=== PATIENT | male | born 1955 | race Caucasian/White ===

== ENCOUNTER 2021-01-27 22:37 | Inpatient (IN) | payer MEDICARE, OTHER ==
[~2021-01-27] VITALS: Ht 190.5 cm; Wt 82.6 kg
--- NOTE | 2021-01-27 23:00 | NUR ---
Pt. resting in bed. 1:[address] Denies SI at this time.
--- NOTE | 2021-01-27 23:09 | NUR ---
Called Matthew Avina from [facility]. ETA is 1hr.
--- NOTE | 2021-01-27 23:09 | NUR ---
Pt. is medically cleared. Art called to evaluate pt for hold, his ETA is 1 hr
[2021-01-27 23:12] LABS: *BILIRUBIN,URIN NEGATIVE (NEGATIVE); *BLOOD, URINE NEGATIVE (NEGATIVE); *CLARITY,URINE CLEAR (CLEAR); *COLOR,URINE YELLOW (YELLOW); *KETONES,URINE TRACE (NEGATIVE); LEUKOCYTE ESTERASE ,URINE NEGATIVE (NEGATIVE); NITRITE, URINE NEGATIVE (NEGATIVE); UGLUCOSE NEGATIVE (NEGATIVE)
[2021-01-27 23:17] LABS: BACTERIA,URINE NONE SEEN /HPF (NONE SEEN); RBC,URINE 0-3 /HPF (0-3); SQUAMOUS EPITHELIAL CELL,UR FEW /HPF (NONE SEEN); WBC,URINE 0-3 /HPF (0-3)
--- NOTE | 2021-01-28 | NUR ---
Pt. requested something to eat, was given a sandwich and pudding which the pt. ate.
--- NOTE | 2021-01-28 00:30 | NUR ---
Art at bedside to evaluate pt.
--- NOTE | 2021-01-28 01:17 | NUR ---
Pt. has been placed on a 5150 hold and will be admitted to the mental health unit at [facility].
--- NOTE | 2021-01-28 02:00 | NUR ---
Report given to STACIA Gallagher.
[2021-01-28 02:45] VITALS: BP 110/72
[2021-01-28] MEDS ORDERED: MAG HYDROX/AL HYDROX/SIMETH 30 ML LIQUID UDC PO PRN (02:45)
[2021-01-28] MEDS ORDERED: MAGNESIUM HYDROXIDE 30 ML LIQUID UDC PO PRN (02:45)
[2021-01-28] MEDS ORDERED: BLOOD SUGAR DIAGNOSTIC 1 EACH STRIP VI ONE (02:45)
--- NOTE | 2021-01-28 03:00 | NUR ---
GPS ADMISSION NOTE. Patient is a 65 year male brought in to the ER from [facility] via ambulance. Patient is on a 5150 for DTS. Per hold ,this patient verbalized wanting to kill himself by hanging. Patient is Homeless and has no support system. Upon face to face evaluation , the patient was calm and cooperative. Patient admitted to being depressed, having an alcohol and drug problem as well. When asked what brought him to the hospital he stated " I am homeless and it is getting harder and harder to live on the streets. I have no family or friends. I do not take any medications ". This patient did make a verbal contract for safety while in the hospital. The VS are stable. Orientation to the unit and rules, Patient rights handbook and Advisement were provided as well as a snack. Patient was anxious and medication was given for that. Dr. Dahl was notified of the admission and orders were received. Continuing to monitor this patient closely and safety stratiges are in place.
[2021-01-28] MEDS: LORAZEPAM 1 MG TABLET PO PRN ×2 (03:45→20:17)
[2021-01-28 07:30] VITALS: BP 115/71
[2021-01-28] MEDS: NICOTINE 21 MG/24HR PATCH TD SCH ×2 (13:27→20:29)
[2021-01-28] MEDS: SERTRALINE HCL 50 MG TABLET PO SCH ×2 (13:27→13:30)
--- NOTE | 2021-01-28 13:28 | NUR ---
Firearms Report: Almond Pan Finisher completed and submitted a DOJ firearms report for 5150 danger to self certifications. A copy of report has been placed in patient chart.
--- NOTE | 2021-01-28 15:16 | NUR ---
Gps/Civil Designer- [place] a loud banging iin the patient's room , per patient he was up set about something , but unable to elaborate . Offered to take ativan 1 mpg po., refused per patient, " you're not going to dope me up because i am upset about something, good bye ". Instructed patient to not hurt anybody , and encouraged to contract for safety, no response from patient , told staff "leave" Continue to monitor behavior, remains in his room in bed.
--- NOTE | 2021-01-28 15:16 | NUR ---
SW Initial Discharge Plan: Patient is currently homeless and would like SNF placement. Patient has no family or supportive contacts. SW will seek SNF placement for the patient. SW will continue to work with patient and MD to ensure a safe and proper discharge plan.
--- NOTE | 2021-01-28 15:36 | NUR ---
SW Substance Abuse Intervention: Patient was provided with a brief substance abuse intervention and referred to [facility] [address], [place] [address] ([phone]); [facility] [address], [address], [place] [address] ([phone]); [facility] ([phone]); [facility] ([phone]); [facility] ([phone]); and National Suicide Prevention Lifeline ([phone]).
[2021-01-28 17:01] VITALS: BP 119/71
[2021-01-28] MEDS ORDERED: SERTRALINE HCL 50 MG TABLET PO ONE (20:00)
[2021-01-28] MEDS: ACETAMINOPHEN 325 MG TABLET PO PRN (20:17)
[2021-01-28 20:20] VITALS: BP 147/81
[2021-01-28] MEDS: TEMAZEPAM 7.5 MG CAPSULE PO PRN (23:07)
--- NOTE | 2021-01-29 06:25 | NUR ---
Received the patient in the day room last night. Awake, calm and cooperative. This racebook writer was able to engage in meaningful conversation with the patient. The patient continues to be depressed but said felt " A little better than before he came here". The patient asked for the nicotine patch . This racebook writer applied the patch because the patient had not received it in the am . The patient also agreed to take the Zoloft and wanted a sleeping pill as well. Patient was compliant and cooperative. This patient was being monitored for SI and frequent rounding was done to ensure safety. Sleep hours were 6.00.
[2021-01-29 07:24] LABS: BILIRUBIN,TOTAL 0.8 mg/dL (0.2-1.0); CREATININE 0.8 mg/dL (0.6-1.3); POTASSIUM 4.4 mmol/L (3.5-5.1); TOTAL PROTEIN, SERUM 7.8 g/dL (6.4-8.2)
[2021-01-29 07:45] VITALS: BP 113/81
[2021-01-29] MEDS: THIAMINE HCL 100 MG TABLET PO SCH (08:43)
[2021-01-29] MEDS: SERTRALINE HCL 50 MG TABLET PO SCH (08:44)
[2021-01-29 16:06] VITALS: BP 131/82
[2021-01-29 20:00] VITALS: BP 120/79
--- NOTE | 2021-01-29 20:00 | NUR ---
RECEIVED PATIENT IN THE HALLWAY. HE WAS NOTED A/O X 2. NOTED EASILY IRRITABLE BUT REDIRECTABLE. HE STATED, "I NEED MY MEDICATIONS" PATIENT WAS ADVISED NO ROUTINE MEDICATION WERE SCHEDULE AT BED TIME. HE CONTINUE STATING THAT HE HAS MEDICATION. THIS ENERGY RISK MANAGEMENT ANALYST CHECKED THE MAR AGAIN AND PATIENT WAS TOLD ONLY PRN TYLENOL AND TEMAZEPAM WERE AVAILABLE. PATIENT WALKED AWAY. PATIENT'S V/S ARE STABLE. HE WAS GIVEN PO FLUIDS AND SNACKS, SAFETY AND FALL PRECAUTION IN PLACE. WILL CONTINUE TO MONITOR.
--- NOTE | 2021-01-29 22:00 | NUR ---
PATIENT APPROACHED THE NURSING STATION AT APPROX 2130, HE STATED IN A A LOUD TONE, WHERE IS MY MEDICATION. I NEED MY MEDICATION, YOU WERE SUPPOSED TO BRING MY MEDICATION BUT YOU DIDN'T, YOU FORGOT I AM GOING TO REPORT YOU TOMORROW". PT WAS INFORMED THAT SHE ONLY HAVE TEMAZEPAM FOR SLEEP AND TYLENOL AND A COULD GIVE TO HIM IF HE NEEDED THEM. PATIENT CONTINUE YELLING, "YOU FORGOT MY MEDICATION, GET OUT, I DON'T WANT TO SEE YOU". PATIENT WENT INTO HIS BED AND COVERS HIMSELF WITH A BLUE BLANKET HE CONTINUE COMPLAINT WITH HIS ROOMMATE ABOUT THE FOOD, AND THE MEDICATIONS. AFTER A FEW MINS PATIENT WAS ABLE TO STOP TALKING AN APPEARS TO BE ASLEEP. SAFETY AND FALL PRECAUTION IN PLACE. WILL CONTINUE TO MONITOR,
[2021-01-30 08:18] VITALS: BP 115/74
[2021-01-30] MEDS: NICOTINE 21 MG/24HR PATCH TD SCH (08:29)
[2021-01-30] MEDS: THIAMINE HCL 100 MG TABLET PO SCH (08:29)
[2021-01-30] MEDS: SERTRALINE HCL 50 MG TABLET PO SCH ×2 (08:30→13:11)
--- NOTE | 2021-01-30 09:30 | NUR ---
Gps/Property Insurance Inspector- Stayed in the activity room during breakfast, had been pleasant and compliant with his routine am medications. Attended group therapy , apologized about his behavior toward night Nurse , he gets impatient as he called it.
--- NOTE | 2021-01-30 15:49 | NUR ---
Gps/Traffic Division Commanding Officer- 14 day hold was faxed to [address].(01/30/21)
[2021-01-30 16:47] VITALS: BP 104/68
[2021-01-30 20:04] VITALS: BP 112/64
[2021-01-31] MEDS: NICOTINE 21 MG/24HR PATCH TD SCH (08:44)
[2021-01-31] MEDS: THIAMINE HCL 100 MG TABLET PO SCH (08:44)
[2021-01-31] MEDS: SERTRALINE HCL 50 MG TABLET PO SCH ×2 (08:44→13:19)
[2021-01-31 15:33] VITALS: BP 110/66
[2021-01-31 20:11] VITALS: BP 112/74
[2021-02-01 07:30] VITALS: BP 98/74
[2021-02-01] MEDS: SERTRALINE HCL 50 MG TABLET PO SCH (08:19)
[2021-02-01] MEDS: THIAMINE HCL 100 MG TABLET PO SCH (08:19)
[2021-02-01] MEDS: NICOTINE 21 MG/24HR PATCH TD SCH (08:19)
[2021-02-01] MEDS: LORAZEPAM 1 MG TABLET PO PRN (09:28)
--- NOTE | 2021-02-01 09:28 | NUR ---
GPS: Nursing Notes: Severe Agitation: Patient is verbally abusive toward his roommate, loud and pressured speech, overly disruptive by constantly shouting, using profanities, threatening to hurt his roommate, "I AM GOING TO FUCKEN KILL YOU.. MOTHER MIAH... FUCK YOU...", violent outburst without provocation, believes that his roommate is coming for him, redirected and setting limits, but continue to shout profanities, paranoid behavior, Ativan 1mg PO PRN given to patient, continue to monitor for safety, removed roommate to another room, continue with treatment plan.
[2021-02-01] MEDS ORDERED: OLANZAPINE 10 MG VIAL IM ONE (09:45)
--- NOTE | 2021-02-01 09:47 | NUR ---
GPS: Nursing Notes: Violent Outburst Without Provocation: Chemical Restraint: Patient became violent toward roommate when roommate was talking on the portable phone, believes that his roommate is lying about him, "MOTHER FUCKER... YOU ARE LYING.. FUCK YOU..", then he went toward the roommate, clenching his fists shouting "I AM GOING TO KILL... WHO YOU CALLING A BITCH... MOTHER FUCKER.... I AM GOING TO MAKE YOU MY BITCH..", redirected and setting limits, but continue to be violent, started to attack the staff, became verbal abusive toward staff, threatening the staff, clenching his fists toward staff, violating the staff personal space, trying to spit at staff, unable to follow directions, paranoid behavior, elise esquivel called at 09:40 hours by charge nurse, Dr. Dahl called and ordered: Zyprexa 10mg IM STAT for violent outburst and threatening to kill roommate and staff, R=20, constantly shouting threats toward staff and security professionals, believes that we are hurting now, continue to monitor for safety, continue with treatment plan.
--- NOTE | 2021-02-01 10:17 | NUR ---
GPS: Nursing Notes: Reassessment of Chemical Restraint: Patient is responding to his name, laying down on his bed, patient is calmed, R=18, medication IM was effective, patient is not threatening to kill anybody, continue to monitor for safety, continue with treatment plan.
[2021-02-01 15:57] VITALS: BP 129/72
[2021-02-01] MEDS: GABAPENTIN 300 MG CAPSULE PO SCH (17:00)
[2021-02-01] MEDS: OLANZAPINE 5 MG TABLET PO SCH (17:00)
[2021-02-01 20:20] VITALS: BP 99/63
[2021-02-02 07:30] VITALS: BP 98/64
--- NOTE | 2021-02-02 07:30 | NUR ---
Received report from STACIA Gallagher. All questions, comments, and concerns were addressed. Received patient resting quietly in his assigned bed. Bed is in low and locked position.
[2021-02-02] MEDS: THIAMINE HCL 100 MG TABLET PO SCH (08:43)
[2021-02-02] MEDS: GABAPENTIN 300 MG CAPSULE PO SCH ×3 (08:43→16:29)
[2021-02-02] MEDS: OLANZAPINE 5 MG TABLET PO SCH ×3 (08:43→16:29)
[2021-02-02] MEDS: NICOTINE 21 MG/24HR PATCH TD SCH (08:47)
[2021-02-02 08:54] LABS: CREATININE 0.8 mg/dL (0.6-1.3); POTASSIUM 4.2 mmol/L (3.5-5.1); TOTAL PROTEIN, SERUM 7.3 g/dL (6.4-8.2)
--- NOTE | 2021-02-02 11:56 | NUR ---
Court Hearing: Patient's [address] court hearing was today and it was upheld for GD.
--- NOTE | 2021-02-02 13:20 | NUR ---
[facility] Individual Therapy: iron worker foreman met with patient for brief counseling and assessed for patient's presenting problem depressed mood. Patient did not want to conduct therapy at this time.
[2021-02-02 16:00] VITALS: BP 98/65
--- NOTE | 2021-02-02 17:25 | NUR ---
Patient is alert and oriented. Patient is guarded, withdrawn, and isolative to his room. Patient denies SI/HI, denies AH/VH. He is compliant with medication, no adverse reaction noted. Patient is cooperative and compliant with staff, able to communicate his needs appropriately. Patient encouraged to participate in unit groups and therapeutic milieu. Patient is able to ambulate independently, able to perform self care and ADL's independently.
[2021-02-02 20:22] VITALS: BP 100/61
--- NOTE | 2021-02-03 05:16 | NUR ---
Patient is cooperative with care, semi fair insight and semi fair judgement. Patient interacts with staffs. Mostly isolative, stays in his room, up for needs only. Patient will remain in a psych facility for further evaluation and treatment.
[2021-02-03 07:30] VITALS: BP 110/72
[2021-02-03] MEDS: NICOTINE 21 MG/24HR PATCH TD SCH (09:00)
[2021-02-03] MEDS: GABAPENTIN 300 MG CAPSULE PO SCH ×3 (09:57→17:00)
[2021-02-03] MEDS: OLANZAPINE 5 MG TABLET PO SCH ×3 (09:57→17:00)
[2021-02-03] MEDS: THIAMINE HCL 100 MG TABLET PO SCH (09:57)
[2021-02-03 16:03] VITALS: BP 130/76
[2021-02-03 20:00] VITALS: BP 103/68
--- NOTE | 2021-02-03 20:30 | NUR ---
RECEIVED PATIENT IN HIS ROOM IN BED. HE IS NOTED AWAKE A/O X 3 HE IS ABLE TO VERBALIZED HIS FEELINGS. HE IS NOTED WITH LOW MOOD, AFFECT IS LABILE. FAIR INSIGHT AND JUDGMENT IS NOTED FOR HIS ADMISSION TO MHU. V/S STABLE. PO FLUIDS AND SNACKS WERE GIVEN. HE IS REASSURED FOR HIS SAFETY. SAFETY AND FALL PRECAUTION IN PLACE. WILL CONTINUE TO MONITOR.
[2021-02-04 07:30] VITALS: BP 104/61
[2021-02-04] MEDS: GABAPENTIN 300 MG CAPSULE PO SCH ×3 (08:53→17:17)
[2021-02-04] MEDS: OLANZAPINE 5 MG TABLET PO SCH ×3 (08:53→17:17)
[2021-02-04] MEDS: THIAMINE HCL 100 MG TABLET PO SCH (08:53)
[2021-02-04] MEDS: NICOTINE 21 MG/24HR PATCH TD SCH (08:55)
--- NOTE | 2021-02-04 09:59 | NUR ---
SNF Referral: This SW sent clinicals to Sean admin from [facility] for placement.
--- NOTE | 2021-02-04 14:11 | NUR ---
Patient endorse to STACIA Benítez for continuity of care.
[2021-02-04 17:39] VITALS: BP 110/72
[2021-02-04 20:04] VITALS: BP 98/71
[2021-02-05 07:53] VITALS: BP 121/76
[2021-02-05] MEDS: THIAMINE HCL 100 MG TABLET PO SCH (08:21)
[2021-02-05] MEDS: GABAPENTIN 300 MG CAPSULE PO SCH ×3 (08:21→16:01)
[2021-02-05] MEDS: OLANZAPINE 5 MG TABLET PO SCH ×3 (08:21→16:01)
[2021-02-05] MEDS: NICOTINE 21 MG/24HR PATCH TD SCH (08:22)
[2021-02-05 17:03] VITALS: BP 106/78
[2021-02-05 20:09] VITALS: BP 116/78
[2021-02-05] MEDS: LORAZEPAM 1 MG TABLET PO PRN (20:38)
[2021-02-05] MEDS: ACETAMINOPHEN 325 MG TABLET PO PRN (20:38)
[2021-02-06] MEDS: TEMAZEPAM 7.5 MG CAPSULE PO PRN (02:35)
[2021-02-06 08:19] VITALS: BP 108/62
[2021-02-06] MEDS: NICOTINE 21 MG/24HR PATCH TD SCH (08:37)
[2021-02-06] MEDS: GABAPENTIN 300 MG CAPSULE PO SCH ×3 (08:38→16:18)
[2021-02-06] MEDS: OLANZAPINE 5 MG TABLET PO SCH ×3 (08:38→16:18)
[2021-02-06] MEDS: THIAMINE HCL 100 MG TABLET PO SCH (08:38)
[2021-02-06 16:22] VITALS: BP 104/66
[2021-02-06 20:01] VITALS: BP 128/80
[2021-02-06] MEDS: LORAZEPAM 1 MG TABLET PO PRN (20:36)
[2021-02-06] MEDS: ACETAMINOPHEN 325 MG TABLET PO PRN (20:36)
[2021-02-07] MEDS: THIAMINE HCL 100 MG TABLET PO SCH (08:20)
[2021-02-07] MEDS: OLANZAPINE 5 MG TABLET PO SCH ×3 (08:20→16:42)
[2021-02-07] MEDS: GABAPENTIN 300 MG CAPSULE PO SCH ×3 (08:21→16:42)
[2021-02-07] MEDS: NICOTINE 21 MG/24HR PATCH TD SCH (08:21)
--- NOTE | 2021-02-07 08:22 | NUR ---
SNF Contact: This SW received a call from Sean Marroquin from [facility] who stated pt is accepted.
[2021-02-07 20:12] VITALS: BP 127/73
[2021-02-08] MEDS: THIAMINE HCL 100 MG TABLET PO SCH (08:17)
[2021-02-08] MEDS: OLANZAPINE 5 MG TABLET PO SCH ×2 (08:17→20:09)
[2021-02-08] MEDS: GABAPENTIN 300 MG CAPSULE PO SCH ×3 (08:17→16:13)
[2021-02-08] MEDS: NICOTINE 21 MG/24HR PATCH TD SCH (08:18)
[2021-02-08 15:33] VITALS: BP 91/53
[2021-02-08] MEDS: LORAZEPAM 1 MG TABLET PO PRN (16:13)
[2021-02-08 20:17] VITALS: BP 115/76
--- NOTE | 2021-02-08 22:52 | NUR ---
THE PATIENT RECEIVED IN DINNING ROOM AWAKE WATCHING T.V.THE PATIENT IS ALERT/ORIENTED X 3. THE PATIENT DENIES PAIN AT THIS TIME. THE PATIENT IS COMPLAINT WITH MEDICATION. SAFE ENVIRONMENT PROVIDED, FREQUENT ROUNDING, AND CLUTTER FREE ENVIRONMENT. BED IN LOWEST POSITION, BED LOCKED, AND BED ALARM ON WHILE IN BED. THE PATIENT DENIES SI.
[2021-02-09 07:30] VITALS: BP 94/48
[2021-02-09] MEDS: THIAMINE HCL 100 MG TABLET PO SCH (08:30)
[2021-02-09] MEDS: GABAPENTIN 300 MG CAPSULE PO SCH ×3 (08:30→17:04)
[2021-02-09] MEDS: NICOTINE 21 MG/24HR PATCH TD SCH (08:33)
[2021-02-09] MEDS ORDERED: OLANZAPINE 5 MG TABLET PO SCH ×2 (09:00→13:00)
[2021-02-09] MEDS: OLANZAPINE 2.5 MG TABLET PO SCH (12:04)
[2021-02-09 16:20] VITALS: BP 98/61
--- NOTE | 2021-02-09 17:49 | NUR ---
patient is alert and oriented. he is guarded, withdrawn, and isolative to his room, but is cooperative. patient is adherent with medication, no adverse reaction noted. patient denies SI/HI, denies AH/VH. patient is able to ambulate independently, able to perform self care and ADL's. patient able to communicate needs to staff appropriately. encouraged to participate in the unit groups and therapeutic milieu.
[2021-02-09] MEDS: OLANZAPINE 5 MG TABLET PO SCH (20:31)
[2021-02-09 21:30] VITALS: BP 109/71
--- NOTE | 2021-02-10 06:20 | NUR ---
Patient slept for 7 hours and 30 mins. Med compliant, pleasant upon approach, interacts with staff, semi fair insight and semi fair judgment. Patient will remain in a psych facility for further evaluation and treatment.
[2021-02-10 07:30] VITALS: BP 123/67
--- NOTE | 2021-02-10 07:54 | NUR ---
SW Discharge Note: Patient will be discharged to [facility] facility to [facility] [address] [place] [address]; ([phone]) via Ambulance transportation at 1pm. Regional Account Executive spoke with Sean, Filter Washer at [facility] ([phone]) who stated patient will be accepted at facility today. Patient is alert and oriented x3 and is not able to plan for self-care at this time but is willing to accept care provided for his at the facility. Patient denies any suicidal or homicidal ideations. Patient is aware and agreeable with discharge plans. Patients does not have any family at this time. Patient will continue to follow-up with (psychiatrist) Dr. Dahl and (bath tester) Dr. Argueta. Patient was provided with a brief substance abuse intervention and referred to [facility] [address] [place] [address] ([phone]); [facility] [address], [address], [place] [address] ([phone]); [facility] ([phone]); [facility] ([phone]); [facility] ([phone]); and National Suicide Prevention Lifeline (633-573-1061). Patient signed the homeless waiver upon discharge and a copy was placed in the chart. Homeless resources were provided and include 211 information line for shelters and homeless resources. A copy of all resources given to patient was also placed in the chart. Patient presented with euthymic mood and congruent affect.
[2021-02-10] MEDS: GABAPENTIN 300 MG CAPSULE PO SCH ×2 (09:55→13:02)
[2021-02-10] MEDS: THIAMINE HCL 100 MG TABLET PO SCH (09:55)
[2021-02-10] MEDS: NICOTINE 21 MG/24HR PATCH TD SCH (09:56)
[2021-02-10] MEDS: OLANZAPINE 2.5 MG TABLET PO SCH ×2 (10:01→13:03)
--- NOTE | 2021-02-10 14:29 | NUR ---
[facility] HERE TO PICK HIM UP AND TRANSPORT TO [facility]. BELONGINGS/VALUABLES RECONCILED. REPORT GIVEN TO RECEIVING FACILITY, [facility]. VSS NO C/O PAIN DISCOMFORT NOTED
== END 2021-02-10 14:30 | DRG 885 ==
LOC: ER 22:39 → GPS 01-28 02:07
PROVIDERS: ADMIT Psychiatry & Neurology Psychosomatic Medicine; ATTEND Nurse Practitioner Acute Care
DX: F33.2 Major depressive disorder, recurrent severe without psychotic features (principal); B18.2 Chronic viral hepatitis C; R45.851 Suicidal ideations; Z59.0 Homelessness; F41.9 Anxiety disorder, unspecified; F10.10 Alcohol abuse, uncomplicated; F15.10 Other stimulant abuse, uncomplicated; F19.10 Other psychoactive substance abuse, uncomplicated; F17.210 Nicotine dependence, cigarettes, uncomplicated
CPT/HCPCS: 36415; 97161; J2358

== ENCOUNTER 2022-07-25 16:38 | Inpatient (IN) | payer MEDICARE, OTHER ==
[~2022-07-25] VITALS: Ht 193 cm; Wt 81.6 kg
[2022-07-25] MEDS ORDERED: diphenhydrAMINE 50 MG/1 ML VIAL ONE (16:57)
[2022-07-25] MEDS ORDERED: LORAZEPAM 2 MG/1 ML VIAL ONE (16:57)
[2022-07-25] MEDS ORDERED: HALOPERIDOL LACTATE 5 MG/1 ML VIAL ONE (16:57)
[2022-07-25] MEDS ORDERED: HALOPERIDOL LACTATE 5 MG/1 ML VIAL IM ONE (17:00)
[2022-07-25] MEDS ORDERED: diphenhydrAMINE 50 MG/1 ML VIAL IM ONE (17:00)
[2022-07-25] MEDS ORDERED: LORAZEPAM 2 MG/1 ML VIAL IM ONE (17:15)
--- NOTE | 2022-07-25 17:19 | NUR ---
Pt arrived [facility] with c/o nose pain. Pt was verbally abusive to medical staff stating "fuck you, motherfucker" and was raising his middle finger to securities and ERMD. Pt was also physically threatening the staff.
--- NOTE | 2022-07-25 17:30 | NUR ---
Medical staff have tried to de-escalate the situation by communication and validation, but pt was insistent on leaving the premises while intoxicated and physically and verbally aggressive.
[2022-07-25] MEDS ORDERED: ESCI-9 PO (17:34)
[2022-07-25] MEDS ORDERED: LIDO30AD10 TD (17:34)
[2022-07-25] MEDS ORDERED: PANT40TA49 PO (17:34)
--- NOTE | 2022-07-25 17:34 | NUR ---
Pt is placed on hard restraint per ERMD
[2022-07-25] MEDS ORDERED: IBUP-1957 PO (17:36)
[2022-07-25] MEDS ORDERED: LOSA50TA39 PO (17:36)
[2022-07-25] MEDS ORDERED: DOCU100C36 PO (17:36)
[2022-07-25] MEDS ORDERED: ACET1TAB23 PO (17:38)
[2022-07-25] MEDS ORDERED: ACET-73 PO (17:38)
[2022-07-25 17:48] LABS: HEMATOCRIT 44.7 % (36.7-47.1); MEAN CORPUSCULAR HEMOGLOBIN 35.2 uug (23.8-33.4); MEAN CORPUSCULAR VOLUME 102.1 fL (73.0-96.2); PLATELET COUNT (AUTO) 120 K/uL (152-348)
[2022-07-25 17:59] LABS: CARBON DIOXIDE 24 mmol/L (21-32); CHLORIDE 99 mmol/L (98-107); CREATININE 0.7 mg/dL (0.6-1.3); GLUCOSE 95 mg/dL (74-106); POTASSIUM 3.8 mmol/L (3.5-5.1); UREA NITROGEN, BLOOD 13 mg/dL (7-18)
[2022-07-25 18:05] LABS: ALANINE AMINOTRANSFERASE 87 U/L (16-63); ALKALINE PHOSPHATASE 100 U/L (50-136); ASPARTATE AMINOTRANSFERASE 126 U/L (15-37); BILIRUBIN,DIRECT 0.4 mg/dL (0.0-0.2); BILIRUBIN,TOTAL 0.8 mg/dL (0.2-1.0); TOTAL PROTEIN, SERUM 8.2 g/dL (6.4-8.2)
[2022-07-25 18:10] LABS: ACETAMINOPHEN < 2.0 ug/mL (10-30)
[2022-07-25 18:15] LABS: ETHANOL 222 MG/DL (0-0)
[2022-07-25] MEDS ORDERED: MAGNESIUM SULFATE/D5W 100 ML IV SCH (18:15)
[2022-07-25] MEDS ORDERED: IV NORMAL SALINE 1000 ML BAG IV ONE (18:15)
[2022-07-25] MEDS ORDERED: MAGNESIUM SULFATE/D5W 100 ML ONE (18:51)
[2022-07-25] MEDS ORDERED: HALOPERIDOL LACTATE 5 MG/1 ML VIAL IV ONE (19:00)
[2022-07-25] MEDS ORDERED: diphenhydrAMINE 50 MG/1 ML VIAL IV ONE (19:00)
[2022-07-25] MEDS ORDERED: LORAZEPAM 2 MG/1 ML VIAL IV ONE (19:15)
[2022-07-25 19:34] LABS: *BILIRUBIN,URIN NEGATIVE (NEGATIVE); *BLOOD, URINE NEGATIVE (NEGATIVE); *CLARITY,URINE CLEAR (CLEAR); *COLOR,URINE YELLOW (YELLOW); *KETONES,URINE NEGATIVE (NEGATIVE); LEUKOCYTE ESTERASE ,URINE NEGATIVE (NEGATIVE); NITRITE, URINE NEGATIVE (NEGATIVE); PH,URINE 5.5 (5.0-8.0); UGLUCOSE NEGATIVE (NEGATIVE)
[2022-07-25 19:45] LABS: *AMPHETAMINE, URINE NEGATIVE (NEGATIVE); *CANNABINOID, URINE NEGATIVE (NEGATIVE); *COCCAINE, URINE NEGATIVE (NEGATIVE); *OPIATE, URINE NEGATIVE (NEGATIVE); *PHENCYCLIDINE SCREEN,URINE NEGATIVE (NEGATIVE)
--- NOTE | 2022-07-25 20:11 | NUR ---
Patient lying in bed, yelling out. No s/s of any distress noted at this time. patient is in 4 point restraints. Spoke with patient agreed to stop yelling, Informed of plan of care and made aware that his restraint will be removed 1 at a time depending on his behavior. Patient aware I will reassess in 15 minutes. Side rails up will continue to monitor.
[2022-07-25] MEDS ORDERED: CHLORDIAZEPOXIDE HCL 25 MG CAPSULE PO PRN ×2 (20:30)
[2022-07-25] MEDS ORDERED: LORAZEPAM 2 MG/1 ML VIAL IV PRN (20:30)
--- NOTE | 2022-07-25 20:44 | NUR ---
Patient is calm and cooperative at this time Left hand released.
[2022-07-25] MEDS ORDERED: DOCUSATE SODIUM 100 MG CAPSULE PO PRN (20:45)
[2022-07-25] MEDS ORDERED: ACETAMINOPHEN/CODEINE 300-30 MG TABLET PO PRN (20:45)
[2022-07-25] MEDS ORDERED: HYDROCODONE/APAP 5-325MG TABLET PO PRN (20:45)
[2022-07-25] MEDS ORDERED: TEMAZEPAM 15 MG CAPSULE PO PRN (21:00)
[2022-07-25] MEDS ORDERED: ONDANSETRON 4 MG/2 ML VIAL IV PRN (21:00)
[2022-07-25] MEDS ORDERED: ACETAMINOPHEN 325 MG TABLET PO PRN (21:00)
[2022-07-25] MEDS ORDERED: MAGNESIUM HYDROXIDE 30 ML LIQUID UDC PO PRN (21:00)
--- NOTE | 2022-07-25 21:09 | NUR ---
Patient continues to be calm, right hand released at this time.
--- NOTE | 2022-07-25 23:38 | NUR ---
Late entry: 2139 left leg released, patient remains calm, no voiced c/o pain or discomfort.
--- NOTE | 2022-07-26 00:43 | NUR ---
Late entry: 2149 right leg released, patient resting no c/o aware will be admitted to the hospital.
--- NOTE | 2022-07-26 00:44 | NUR ---
Report given to accepting nurse Donna, patient remains stable for transpor to unit.
--- NOTE | 2022-07-26 01:06 | NUR ---
Late entry: Md was made aware of patient not recieving medications. Patient has been calm without c/o.
[2022-07-26] MEDS ORDERED: MVI ADULT IV SCH (01:45)
[2022-07-26] MEDS ORDERED: 1/2 NS IV SCH (01:45)
[2022-07-26] MEDS ORDERED: D5 IV SCH (01:45)
--- NOTE | 2022-07-26 02:00 | NUR ---
Patient arrived on unit from ER for admission to room 215. A/A/O X 3. Patient very reluctant to have initial body assessment done. He is wrapped up in multiple blankets. While getting him situated in bed, he is noted with abrasion on top of his nose and both legs and bruise on left arm. When try to put on tele monitor, patient screams loudly stating that placement of the electrode pads hurts him, meanwhile, all pads were already attached to buttons prior to placement on designated areas into patient's skin. I explain to patient that it only takes a quick minute to get this done. Patient allows me to finish applying the pads for tele monitoring but refuses to answer any other questions to complete his admission assessment.
[2022-07-26] MEDS: ESCITALOPRAM OXALATE 10 MG TABLET PO SCH ×2 (08:53→09:04)
[2022-07-26] MEDS: PANTOPRAZOLE SODIUM 40 MG TABLET.DR PO SCH (09:03)
[2022-07-26] MEDS: LOSARTAN POTASSIUM 50 MG TABLET PO SCH (09:03)
[2022-07-26] MEDS: LIDOCAINE 5% PATCH TD SCH (09:04)
[2022-07-26] MEDS ORDERED: IV D5 1/2 NS 1000 ML 1,000 ML IV PRN (10:15)
[2022-07-26 10:51] VITALS: BP 100/61
[2022-07-26] MEDS: FOLIC ACID 1 MG TABLET PO SCH ×2 (11:58→21:02)
[2022-07-26] MEDS: MULTIVITAMINS,THERAPEUTIC TABLET PO SCH (11:58)
[2022-07-26] MEDS: CYANOCOBALAMIN 1,000 MCG TABLET PO SCH ×2 (12:00→21:02)
[2022-07-26] MEDS: THIAMINE HCL 100 MG TABLET PO SCH ×2 (12:00→21:02)
[2022-07-26 16:23] LABS: HEMATOCRIT 39.6 % (36.7-47.1); MEAN CORPUSCULAR HEMOGLOBIN 34.8 uug (23.8-33.4); MEAN CORPUSCULAR VOLUME 101.4 fL (73.0-96.2); PLATELET COUNT (AUTO) 102 K/uL (152-348)
[2022-07-26 16:31] LABS: CREATININE 0.8 mg/dL (0.6-1.3); POTASSIUM 4.1 mmol/L (3.5-5.1)
[2022-07-26 16:35] LABS: MAGNESIUM 1.6 mg/dL (1.8-2.4); PHOSPHOROUS 3.1 mg/dL (2.5-4.9)
[2022-07-26 20:00] VITALS: BP 106/72
[2022-07-27] VITALS: BP 104/62
--- NOTE | 2022-07-27 01:08 | NUR ---
Patient alert and oriented x4. No acute distress or complaints noted. Saline lock intact in left upper arm. Voiding clear param urine in urinal. Denies any discomfort or pain.
[2022-07-27 04:49] VITALS: BP 119/73
[2022-07-27] MEDS: PANTOPRAZOLE SODIUM 40 MG TABLET.DR PO SCH ×2 (06:17→06:27)
[2022-07-27 07:47] LABS: CARBON DIOXIDE 26 mmol/L (21-32); CHLORIDE 99 mmol/L (98-107); CREATININE 0.6 mg/dL (0.6-1.3); GLUCOSE 106 mg/dL (74-106); MAGNESIUM 1.6 mg/dL (1.8-2.4); PHOSPHOROUS 3.4 mg/dL (2.5-4.9); POTASSIUM 3.7 mmol/L (3.5-5.1); UREA NITROGEN, BLOOD 13 mg/dL (7-18)
[2022-07-27 08:17] LABS: HEMATOCRIT 42.3 % (36.7-47.1); MEAN CORPUSCULAR HEMOGLOBIN 35.2 uug (23.8-33.4); MEAN CORPUSCULAR VOLUME 102.2 fL (73.0-96.2); PLATELET COUNT (AUTO) 100 K/uL (152-348)
[2022-07-27] MEDS: LIDOCAINE 5% PATCH TD SCH (09:00)
[2022-07-27 09:51] VITALS: BP 138/75
[2022-07-27] MEDS: THIAMINE HCL 100 MG TABLET PO SCH ×2 (09:54→21:00)
[2022-07-27] MEDS: ESCITALOPRAM OXALATE 10 MG TABLET PO SCH (09:54)
[2022-07-27] MEDS: MULTIVITAMINS,THERAPEUTIC TABLET PO SCH (09:54)
[2022-07-27] MEDS: CYANOCOBALAMIN 1,000 MCG TABLET PO SCH ×2 (09:54→22:36)
[2022-07-27] MEDS: LOSARTAN POTASSIUM 50 MG TABLET PO SCH (09:55)
[2022-07-27] MEDS: FOLIC ACID 1 MG TABLET PO SCH ×2 (09:55→22:36)
[2022-07-27] MEDS ORDERED: MAGNESIUM OXIDE 400 MG TABLET PO ONE (14:00)
[2022-07-27 16:00] VITALS: BP 126/73
[2022-07-27] MEDS: MAGNESIUM SULFATE/D5W 100 ML IV SCH ×2 (22:00→23:00)
--- NOTE | 2022-07-27 22:45 | NUR ---
Patient is AAOX4 refused Mag IV , very irritated. However patient have been educated the reason why Magnesium have been prescribed. Patient even refused to get his IV line flushed. Second nurse also went to patient room and still refused.
[2022-07-28] MEDS: MAGNESIUM SULFATE/D5W 100 ML IV SCH ×6 (01:00→18:41)
[2022-07-28 03:16] VITALS: BP 121/83
[2022-07-28 05:38] VITALS: BP 117/76
--- NOTE | 2022-07-28 07:38 | NUR ---
Patient continue to refused medication as well as morning labs. He seems very irritated but denies pain. He does not like to be bothered Stated the patient. However, he is stable and he is now resting in his room.
[2022-07-28 08:56] VITALS: BP 104/70
[2022-07-28] MEDS: LIDOCAINE 5% PATCH TD SCH (09:36)
[2022-07-28] MEDS: LOSARTAN POTASSIUM 50 MG TABLET PO SCH (09:37)
[2022-07-28] MEDS: CYANOCOBALAMIN 1,000 MCG TABLET PO SCH ×2 (09:37→20:23)
[2022-07-28] MEDS: FOLIC ACID 1 MG TABLET PO SCH ×2 (09:38→20:23)
[2022-07-28] MEDS: MULTIVITAMINS,THERAPEUTIC TABLET PO SCH (09:40)
[2022-07-28] MEDS: THIAMINE HCL 100 MG TABLET PO SCH ×2 (09:43→20:23)
[2022-07-28] MEDS: ESCITALOPRAM OXALATE 10 MG TABLET PO SCH (09:43)
[2022-07-28] MEDS: PANTOPRAZOLE SODIUM 40 MG TABLET.DR PO SCH (09:43)
[2022-07-28] MEDS ORDERED: LIDO30AD10 TD (17:45)
[2022-07-28] MEDS ORDERED: CHLO25CA22 PO (17:45)
[2022-07-28] MEDS ORDERED: ESCI-9 PO (17:45)
[2022-07-28] MEDS ORDERED: PANT40TA49 PO (17:45)
[2022-07-28] MEDS ORDERED: THIA100T13 PO (17:45)
[2022-07-28] MEDS ORDERED: HYDR-3972 PO (17:45)
[2022-07-28] MEDS ORDERED: TEMA15CA PO (17:45)
[2022-07-28] MEDS ORDERED: ACET1TAB23 PO (17:45)
[2022-07-28] MEDS ORDERED: DOCU-141 PO (17:45)
[2022-07-28] MEDS ORDERED: CYAN-51 PO (17:45)
[2022-07-28] MEDS ORDERED: MULT-24 PO (17:45)
[2022-07-28] MEDS ORDERED: MAGN400O6 PO (17:45)
[2022-07-28] MEDS ORDERED: FOLI1TAB94 PO (17:45)
[2022-07-28] MEDS ORDERED: LOSA50TA3 PO (17:45)
[2022-07-28] MEDS ORDERED: LORA2VIA6 IM (17:45)
[2022-07-28] MEDS ORDERED: ONDA4VIA23 PO (17:45)
[2022-07-28 19:38] VITALS: BP 129/74
[2022-07-28 21:50] VITALS: BP 111/57
--- NOTE | 2022-07-28 22:56 | NUR ---
Patient awake ,alert, and oriented x3. No acute distress noted. Saline lock intact in left arm. Denies pain. Bed in low position and call gunderson in reach. Will continue to monitor.
[2022-07-29 05:58] VITALS: BP 100/52
[2022-07-29] MEDS: PANTOPRAZOLE SODIUM 40 MG TABLET.DR PO SCH (06:00)
[2022-07-29 07:29] LABS: CARBON DIOXIDE 28 mmol/L (21-32); CHLORIDE 99 mmol/L (98-107); CREATININE 0.6 mg/dL (0.6-1.3); GLUCOSE 105 mg/dL (74-106); PHOSPHOROUS 3.9 mg/dL (2.5-4.9); UREA NITROGEN, BLOOD 15 mg/dL (7-18)
[2022-07-29 07:35] LABS: HEMATOCRIT 43.7 % (36.7-47.1); MEAN CORPUSCULAR HEMOGLOBIN 34.4 uug (23.8-33.4); MEAN CORPUSCULAR VOLUME 101.4 fL (73.0-96.2); PLATELET COUNT (AUTO) 110 K/uL (152-348)
[2022-07-29 08:52] VITALS: BP 103/55
[2022-07-29] MEDS: FOLIC ACID 1 MG TABLET PO SCH (09:16)
[2022-07-29] MEDS: THIAMINE HCL 100 MG TABLET PO SCH (09:16)
[2022-07-29] MEDS: LOSARTAN POTASSIUM 50 MG TABLET PO SCH (09:17)
[2022-07-29] MEDS: MULTIVITAMINS,THERAPEUTIC TABLET PO SCH (09:18)
[2022-07-29] MEDS: LIDOCAINE 5% PATCH TD SCH (09:18)
[2022-07-29] MEDS: ESCITALOPRAM OXALATE 10 MG TABLET PO SCH (09:18)
[2022-07-29] MEDS: CYANOCOBALAMIN 1,000 MCG TABLET PO SCH (12:14)
[2022-07-29 16:50] VITALS: BP 99/65
--- NOTE | 2022-07-29 17:40 | NUR ---
Patient discharge. Peripheral IV removed per protocol without complications. Patient departed unit via EMS transportation.
== END 2022-07-29 17:15 | DRG 896 ==
LOC: ER 16:38 → TELE 21:37 → MED 07-28 11:10
PROVIDERS: ADMIT Internal Medicine; ATTEND Internal Medicine
DX: F10.239 Alcohol dependence with withdrawal, unspecified (principal); G93.41 Metabolic encephalopathy; F33.1 Major depressive disorder, recurrent, moderate; S02.2XXA Fracture of nasal bones, initial encounter for closed fracture; W19.XXXA Unspecified fall, initial encounter; E83.42 Hypomagnesemia; G89.4 Chronic pain syndrome; Z87.891 Personal history of nicotine dependence; Z88.0 Allergy status to penicillin; J44.9 Chronic obstructive pulmonary disease, unspecified; D69.6 Thrombocytopenia, unspecified; K21.9 Gastro-esophageal reflux disease without esophagitis; G47.9 Sleep disorder, unspecified; Z79.899 Other long term (current) drug therapy; F20.9 Schizophrenia, unspecified; I10 Essential (primary) hypertension; F41.9 Anxiety disorder, unspecified; Y90.7 Blood alcohol level of 200-239 mg/100 ml; Y93.9 Activity, unspecified; Y92.89 Other specified places as the place of occurrence of the external cause; M48.03 Spinal stenosis, cervicothoracic region; M50.33 Other cervical disc degeneration, cervicothoracic region; Z20.822 Contact with and (suspected) exposure to COVID-19
CPT/HCPCS: 36415; 70450; 70486; 71045; 72125; 83550; 83735; 84100; 84484; 85025; 93005; A4663; G0378; G0480; J1200; J1630; J2060; J3475; J3490; J7040